=== PATIENT | male | born 2000 | race Caucasian/White ===

== ENCOUNTER 2022-12-14 01:10 | Emergency (ER) | payer SELFPAY ==
[2022-12-14] MEDS ORDERED: cefTRIAXone 1 GM, Lidocaine 1% 2.1 ML IM ONE ×2 (01:29)
[2022-12-14] MEDS ORDERED: Ciprofloxacin 0.3% Ophth Soln 2.5 ML Bottle EARLF ONE (01:35)
[2022-12-14] MEDS ORDERED: Take Home: Acetaminophen/HYDROcodone 325-5 MG, 5 Tab Pack PO ONE (01:36)
== END 2022-12-14 02:10 | disposition home or self-care (01) ==
LOC: VM.ED 01:10
DX: H60.91 Unspecified otitis externa, right ear (principal)
CPT/HCPCS: 96372; 99282; 99283; A9270-GY; J0696; J3490